=== PATIENT | male | born 1950 | race Caucasian/White ===

== ENCOUNTER → 2017-12-03 | Outpatient (CLI) | payer MEDICARE, BC | END | disposition home or self-care (01) | LOC: HKI 15:54 | DX: M25.562 Pain in left knee (principal); R22.42 Localized swelling, mass and lump, left lower limb; Z87.891 Personal history of nicotine dependence; Z95.2 Presence of prosthetic heart valve | CPT/HCPCS: 73564; 73564-50 ==

== ENCOUNTER → 2017-12-12 | Outpatient (CLI) | payer MEDICARE, BC | END | disposition home or self-care (01) | LOC: HKI 14:06 | DX: S89.92XD Unspecified injury of left lower leg, subsequent encounter (principal); Y93.23 Activity, snow (alpine) (downhill) skiing, snowboarding, sledding, tobogganing and snow tubing ==

== ENCOUNTER → 2018-01-09 | Outpatient (CLI) | payer MEDICARE, BC | END | disposition home or self-care (01) | LOC: HKI 13:58 | DX: M23.207 Derangement of unspecified meniscus due to old tear or injury, left knee (principal) | CPT/HCPCS: G0463 ==

== ENCOUNTER → 2018-03-05 | Outpatient (CLI) | payer MEDICARE, BC | END | disposition home or self-care (01) | LOC: HKI 10:14 | DX: S86.812D Strain of other muscle(s) and tendon(s) at lower leg level, left leg, subsequent encounter (principal); X58.XXXD Exposure to other specified factors, subsequent encounter | CPT/HCPCS: G0463 ==

== ENCOUNTER → 2018-11-14 | Outpatient (CLI) | payer MEDICARE, BC | END | disposition home or self-care (01) | LOC: HKI 14:05 | DX: S83.512D Sprain of anterior cruciate ligament of left knee, subsequent encounter (principal); X58.XXXD Exposure to other specified factors, subsequent encounter | CPT/HCPCS: G0463 ==